=== PATIENT | female | born 1970 | race Caucasian/White ===

== ENCOUNTER 2016-08-23 11:20 | Emergency (ER) | payer BC, OTHER ==
[~2016-08-23] VITALS: Ht 162.6 cm; Wt 80.0 kg
[2016-08-23] MEDS ORDERED: MORP1TAB25 PO (11:42)
[2016-08-23] MEDS ORDERED: BUTA1TAB30 PO (11:42)
[2016-08-23] MEDS ORDERED: ZOCO5TAB PO (11:42)
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
[2016-08-23 13:35] VITALS: BP 135/62; PULSE 70; RESP 18; O2SAT 98
[2016-08-23] MEDS ORDERED: LIDO5DIS35 TOPICAL (13:57)
[2016-08-23] MEDS ORDERED: NORC5TAB PO (13:57)
[2016-08-23] MEDS ORDERED: MOBI15TA PO (13:57)
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
[2016-08-23] MEDS ORDERED: MORPHINE SULFATE 4 MG/ML INJ IV PUSH ONE (14:00)
[2016-08-23] MEDS ORDERED: ONDANSETRON HCL 4 MG/2 ML VIAL IV PUSH ONE (14:00)
[2016-08-23] MEDS ORDERED: KETOROLAC TROMETHAMINE 30 MG/ML (IVP) VIAL IV PUSH ONE (14:00)
== END 2016-08-23 15:20 | disposition home or self-care (01) ==
LOC: NEPA 11:20
DX: S22.42XA Multiple fractures of ribs, left side, initial encounter for closed fracture (principal); M25.551 Pain in right hip; M25.552 Pain in left hip; M54.5 Low back pain; E78.00 Pure hypercholesterolemia, unspecified; V23.5XXA Motorcycle passenger injured in collision with car, pick-up truck or van in traffic accident, initial encounter; Y93.9 Activity, unspecified; Y92.410 Unspecified street and highway as the place of occurrence of the external cause; F17.210 Nicotine dependence, cigarettes, uncomplicated
CPT/HCPCS: 71101; 72100; 73502; 96374; 96375; 99284; J1885; J2270; J2405